=== PATIENT | male | born 1990 | race African-American/Black ===

== ENCOUNTER 2019-01-08 06:58 | Emergency (ER) | payer SELFPAY ==
[~2019-01-08] VITALS: Ht 167.6 cm; Wt 61.2 kg
[2019-01-08 07:03] VITALS: BP 134/88
--- NOTE | 2019-01-08 07:21 | PHYS DOC ---
Past Medical History Past Medical History: No Pertinent History Past Surgical History: No Surgical History Alcohol Use: Occasionally Drug Use: Marijuana Adult General Chief Complaint Chief Complaint: ABSCESS HPI HPI 28-year-old male presenting the emergency department today with a recurring abscess underneath the right jaw bone that is draining. He reports this been present for a couple months and intermittently drains. He reports it drained recently yesterday a yellow color. No redness around the abscess. He denies fevers or chills. He reports taking amoxicillin for a few days which did not improve his symptoms. He got the amoxicillin from a relative who was given for dental pain. Review of systems is negative for chest pain shortness of breath fevers chills. ED course: 28-year-old male presenting the emergency department today with a recurring skin and soft tissue infection underneath the right jaw bone. On examination no palpable fluctuant mass that he does have a mild excoriation or lesion that is approximately 8 mm to 10 mm in diameter. Nothing to drain. We will give him oral antibiotics and have him follow-up with his doctor in 2-3 days.The patient has been examined and was not found to have an emergency medical condition. The patient was then discharged home in stable condition to follow up with their primary care physician over the next 1-2 days. They were to return if their symptoms worsened or if they were concerned for any reason. They were also instructed to return to the emergency department if they were unable to get the recommended and appropriate follow-up. [id number] discharge instructions and return precautions were given. Patient's questions were answered to their satisfaction. Patient is comfortable with plan. Allergies Allergies Allergies Coded Allergies Type Severity Reaction Last Updated Verified No Known Drug Allergies 01/08/19 No Physical Exam Physical Exam Constitutional: Well developed, well nourished, no acute distress, non-toxic appearance. [] HENT: Normocephalic, atraumatic, bilateral external ears normal, oropharynx moist, no oral exudates, nose normal. lesion described as above. Eyes: PERRLA, EOMI, conjunctiva normal, no discharge. [] Neck: Normal range of motion, no tenderness, supple, no stridor. [] Cardiovascular:Heart rate regular rhythm, no murmur [] Lungs & Thorax: Bilateral breath sounds clear to auscultation [] Abdomen: Bowel sounds normal, soft, no tenderness, no masses, no pulsatile masses. [] Skin: Warm, dry, no erythema, no rash. [] Back: No tenderness, no CVA tenderness. [] Extremities: No tenderness, no cyanosis, no clubbing, ROM intact, no edema. [] Neurologic: Alert and oriented X 3, normal motor function, normal sensory function, no focal deficits noted. [] Psychologic: Affect normal, judgement normal, mood normal. [] Current Patient Data Vital Signs Vital Signs Date Time Temp Pulse Resp B/P (MAP) Pulse Ox O2 Delivery O2 Flow Rate FiO2 01/08/19 07:03 97.7 91 16 134/88 (103) 100 Room Air 97.7 EKG EKG [] Radiology/Procedures Radiology/Procedures [] Course & Med Decision Making Course & Med Decision Making Pertinent Labs and Imaging studies reviewed. (See chart for details) [] Dragon Disclaimer Dragon Disclaimer This electronic medical record was generated, in whole or in part, using a voice recognition dictation system. Departure Departure Impression: Primary Impression: Abscess Disposition: 01 HOME, SELF-CARE Condition: STABLE Referrals: NO PCP (PCP) Patient Instructions: Abscess, [id number] Additional Instructions: Thank you for allowing us to participate in your care today. Return to the emergency department you have any new or worsening symptoms, or if you are concerned for any reason. Return to emergency department if you have any new or concerning symptoms including but not limited to fever, chills, nausea, vomiting, intractable pain, any new rashes, chest pain, shortness of air , uncontrolled bleeding, difficulty breathing, and/or vision loss. Follow up with your primary care physician within 1-2 days. Call your Primary Doctor tomorrow and inform them of your visit today. If you do not have a primary care provider we are happy to provide you with a list of our primary care providers contact information. This condition should be evaluated by your primary care physician and any recommended consulting services for continued management within 2 days after discharge. If at any time, you are having difficulty getting into your primary care doctor or a specialist, return to the emergency department. Scripts Sulfamethoxazole/Trimethoprim (BACTRIM DS TABLET) 1 Each Tablet 1 TAB PO BID, #14 TAB Prov: YUE GAMING MD 01/08/19 YUE GAMING MD Jan 08, 2019 07:21
[2019-01-08] MEDS ORDERED: SULF1TAB24 PO (07:22)
== END 2019-01-08 07:30 | disposition home or self-care (01) ==
LOC: ER 06:58
DX: M27.2 Inflammatory conditions of jaws (principal)
CPT/HCPCS: 99283

== ENCOUNTER 2019-11-02 08:35 | Emergency (ER) | payer SELFPAY ==
[~2019-11-02] VITALS: Ht 167.6 cm; Wt 59.0 kg
[~2019-11-02 08:35] MED LIST: SULF1TAB24 PO
[2019-11-02] MEDS ORDERED: MUPI22OI2 TP (09:47)
--- NOTE | 2019-11-02 09:47 | PHYS DOC ---
Past Medical History Past Medical History: No Pertinent History Past Surgical History: No Surgical History Smoking Status: Former Smoker Additional Information: quit smoking at the end of last year Alcohol Use: Occasionally Drug Use: Marijuana Adult General Chief Complaint Chief Complaint: FACE PAIN HPI HPI Patient is a 28 year old AA male who presents to the emergency department with complaints of a tender sore to his right jaw that keeps filling with pus for the last 3 months. Pt states it will drain but then returns after a week or so. He denies any fever, cough, shortness of breath, nausea, vomiting, diarrhea, rash, itching, ear pain, sore throat, or dental pain. He currently rates the pain a 2/10 on the pain scale, the pain increases if the area is touched. Review of Systems Review of Systems All other ROS is negative unless otherwise noted in HPI. Allergies Allergies Allergies Coded Allergies Type Severity Reaction Last Updated Verified No Known Drug Allergies 01/08/19 No Physical Exam Physical Exam See Above Constitutional: Well developed, well nourished, no acute distress, non-toxic appearance. [] HENT: Normocephalic, atraumatic, bilateral external ears normal, oropharynx moist, no oral exudates, nose normal. [] Eyes: PERRLA, EOMI, conjunctiva normal, no discharge. [] Neck: Normal range of motion, no tenderness, supple, no stridor. [] Cardiovascular:Heart rate regular rhythm Lungs & Thorax: Bilateral breath sounds clear to auscultation, Respirations even and unlabored, no retractions, no respiratory distress [] Skin: Warm, dry, no erythema,; 0.5 and remainder diameter, pus filled abscess noted to right lower jaw that drained a small amount of purulent fluid followed by minimal bleeding while assessing the area Extremities: No cyanosis, ROM intact Neurologic: Alert and oriented X 3, no focal deficits noted. [] Psychologic: Affect normal, judgement normal, mood normal. [] Current Patient Data Vital Signs Vital Signs Date Time Temp Pulse Resp B/P (MAP) Pulse Ox O2 Delivery O2 Flow Rate FiO2 11/02/19 09:15 98.3 72 16 150/91 (110) 99 Room Air 98.3 EKG EKG [] Radiology/Procedures Radiology/Procedures [] Course & Med Decision Making Course & Med Decision Making Pertinent Labs and Imaging studies reviewed. (See chart for details) [] Dragon Disclaimer Dragon Disclaimer This electronic medical record was generated, in whole or in part, using a voice recognition dictation system. Departure Departure Impression: Primary Impression: Facial abscess Disposition: 01 HOME, SELF-CARE Condition: STABLE Referrals: NO PCP (PCP) Patient Instructions: Abscess, Care After Additional Instructions: Fill the prescription(s) and use as directed. You may take tylenol or ibuprofen as needed for pain. Apply warm, moist packs to the area frequently to help decrease discomfort. Follow up with your primary care doctor in 1-2 days to have area rechecked. Return to the ER sooner if your symptoms worsen. Scripts Mupirocin (MUPIROCIN OINTMENT) 22 Gm Oint...g. 1 BEATRICE TP TID for WOUND CARE for 7 Days, #1 TUBE Prov: RASHARD DEWEY APRN 11/02/19 RASHARD DEWEY APRN Nov 02, 2019 09:47
[2019-11-02 09:54] VITALS: BP 149/84
== END 2019-11-02 09:54 | disposition home or self-care (01) ==
LOC: ER 08:35
DX: L02.01 Cutaneous abscess of face (principal); M27.2 Inflammatory conditions of jaws; F12.90 Cannabis use, unspecified, uncomplicated; F17.200 Nicotine dependence, unspecified, uncomplicated
CPT/HCPCS: 99283